=== PATIENT | male | born 1945 | race Caucasian/White ===

== ENCOUNTER → 2017-06-11 | Outpatient (CLI) | payer OTHER ==
--- NOTE | 2017-06-11 11:53 | Diagnostic Imaging Report ---
PROCEDURE: Frontal and lateral views of the chest. COMPARISON: None. INDICATIONS: ANNUAL PHYSICAL, CHRONIC COUGH FINDINGS: Lines/tubes: None. Lungs: The lungs are well inflated and clear. There is no evidence of pneumonia or pulmonary edema. Pleura: There is no pleural effusion or pneumothorax. Heart and mediastinum: The heart and the mediastinum are normal. Aorta is calcified and mildly tortuous. Bones: No acute bony abnormality. Mild age indeterminant T12 superior endplate compression deformity. IMPRESSION: 1. No acute cardiopulmonary disease. Dictated by: Alexx Murphy M.D. on 06/11/2017 at 12:02 Electronically approved by: Alexx Murphy M.D. on 06/11/2017 at 12:02
== END ==
LOC: RAD 10:45
PROVIDERS: ATTEND Family Medicine
DX: Z00.00 Encounter for general adult medical examination without abnormal findings (principal); R05 Cough
CPT/HCPCS: 71020